=== PATIENT | male | born 1940 | race Caucasian/White ===

== ENCOUNTER 2022-03-14 06:18 | Day surgery (SDC) | payer MEDICARE ==
[2022-03-07 14:40] LABS: BASOPHILS % (AUTO) 0.4 % (0-1); EOSINOPHILS # (AUTO) 0.1 X10'3 (0-0.9); LYMPHOCYTES # (AUTO) 1.8 X10'3 (1.1-4.8); MEAN CORPUSCULAR HEMOGLOBIN 32.2 PG (27.0-31.0); MEAN CORPUSCULAR HGB CONC 33.5 g/dL (33.0-36.5); MEAN CORPUSCULAR VOLUME 95.9 FL (78-98); MEAN PLATELET VOLUME 9.8 FL (7.4-10.4); MONOCYTES # (AUTO) 0.7 X10'3 (0-0.9); MONOCYTES % (AUTO) 11.1 % (2-12); NEUTROPHILS # (AUTO) 3.4 X10'3 (1.8-7.7); NEUTROPHILS % (AUTO) 56.5 % (42-75); PRE OP HEMATOCRIT 37.4 % (42.0-52.0); PRE OP HEMOGLOBIN 12.5 g/dL (14.0-17.9); PRE OP PLATELET COUNT 218 X10'3 (140-440); RED BLOOD COUNT 3.89 X10'6 (4.70-6.10); RED CELL DISTRIBUTION WIDTH 15.1 % (11.5-14.5)
[2022-03-07 15:31] LABS: ALBUMIN 3.7 G/DL (3.4-5.0); ALKALINE PHOSPHATASE 107 IU/L (46-116); BLOOD UREA NITROGEN 30 MG/DL (7-18); BUN/CREATININE RATIO 17.6 (5.4-32.0); CALCIUM 8.6 MG/DL (8.5-10.1); CHLORIDE 102 MMOL/L (99-107); PRE OP ALT 21 U/L (30-65); PRE OP ANION GAP 9 (8-16); PRE OP AST 23 U/L (10-37); PRE OP BILIRUB, TOTAL 0.3 MG/DL (0.0-1.0); PRE OP POTASSIUM 5.6 MMOL/L (3.4-5.1); PRE OP SODIUM 135 MMOL/L (135-145); TOTAL CARBON DIOXIDE 24.2 MMOL/L (24-32); TOTAL PROTEIN 7.3 G/DL (6.4-8.2); eGFR 39 ML/MIN
[2022-03-07 15:33] LABS: PRE OP GLUCOSE 236 MG/DL (70-104)
[2022-03-14] VITALS (9 sets, daily range): BP systolic 131–152; BP diastolic 57–70
[~2022-03-14] VITALS: Ht 177.8 cm; Wt 88.5 kg
[~2022-03-14 06:18] MED LIST: FLUO-1 PO; GABA-530 PO; LISI20TA28 PO; LOVA20TA2 PO; METF-438 PO; PANT40TA54 PO; PIOG45TA65 PO; ceFAZolin inj. 2,000 MG in dextrose 5%-water 100 ML IV ONE; famotidine 20mg tablet PO ONE; ringers solution, lacted 1,000 ML IV SCH
[2022-03-14] MEDS ORDERED: fentaNYL/PF 50MCG/1 ML 2ML syringe IV PRN ×2 (07:05)
[2022-03-14] MEDS ORDERED: morphine 2 MG/ML inj. syringe IV PRN (07:05)
[2022-03-14] MEDS ORDERED: morphine 4 MG/ML inj SYRINge IV PRN (07:05)
[2022-03-14] MEDS ORDERED: ringers solution, lacted 1,000 ML IV SCH (07:05)
[2022-03-14] MEDS ORDERED: labetalol 20mg/4ml (5mg/ml) syringe IV PRN (07:05)
[2022-03-14] MEDS ORDERED: ondansetron/PF 4mg/2ml inj IV PRN (07:05)
[2022-03-14] MEDS ORDERED: hydrALAZINE 20mg/ml inj. IV PRN (07:05)
[2022-03-14] MEDS ORDERED: LIDOcaine 0.5% (5mg/ml) 50ml vial ONE (07:07)
[2022-03-14] MEDS ORDERED: BUPIVAcaine/PF 2.5mg/ml (0.25%) 10ml vial ONE (07:12)
[2022-03-14] MEDS ORDERED: fentaNYL/PF 50MCG/1 ML 2ML syringe ONE (09:46)
[2022-03-14] MEDS ORDERED: MIDAZolam 1 MG/ML 5ML VIAL ONE (09:47)
--- NOTE | 2022-03-14 10:38 | NUR ---
Received from OR via [facility] , accompanied by AnesthesiologistDR OSBORNE and report given by Anesthesiolgist. PT IS AWAKE, ALERT ANS ANSWERING QUESTIONS APPROPRIATELY AND GUO. PT PLACED ON B[place]E MONITOR, VSS. PT IN SR WITH RATE IN 60'S. PT ON RA AND TOLERATING WELL WITH O2 SAT >95%. PT HAS 20G PIV TO LEFT HAND WITH LR INFUSING ORDERED. PT HAS SPLINT WITH WRAP AND FOAM TAPE. ALL IS CDI. PT IS ABLE TO WIGGLE FINGERS ON RIGHT HAND. PT DENIES PAIN AT THIS TIME. WILL CONTINUE TO ASSESS.
--- NOTE | 2022-03-14 12:14 | NUR ---
ALL DISCHARGE CRITERIA HAS BEEN MET. VSS, PAIN AT A TOLERABLE LEVEL, ABLE TO SAFELY AMBULATE AND TRANSFER SELF. IV TAKEN OUT WITHOUT ANY COMPLICATIONS. ALL DISCHARGE INSTRUCTIONS COVERED WITH PATIENT AND ALL QUESTIONS ANSWERED. PATIENT TAKEN OUT VIA WHEELCHAIR TO PERSONAL VEHICLE WHERE PT'S DROVE PATIENT HOME.
== END 2022-03-14 12:08 | disposition home or self-care (01) ==
LOC: PAS 06:18
PROVIDERS: ATTEND Orthopaedic Surgery Hand Surgery
DX: M72.0 Palmar fascial fibromatosis [Dupuytren] (principal); I10 Essential (primary) hypertension; E11.40 Type 2 diabetes mellitus with diabetic neuropathy, unspecified; D50.9 Iron deficiency anemia, unspecified; D64.9 Anemia, unspecified; E78.00 Pure hypercholesterolemia, unspecified; Z82.49 Family history of ischemic heart disease and other diseases of the circulatory system; Z79.899 Other long term (current) drug therapy; Z98.890 Other specified postprocedural states
CPT/HCPCS: 26123; 36415; 80053; 82948; 85025; 87811; A6222; J0690; J2250; J3010; J3490; J7030; J7060; J7120; Z7506; Z7512; A4215; A4618; A6449; A7000